=== PATIENT | male | born 1945 | race Hispanic/Latino ===

== ENCOUNTER 2017-05-09 18:34 | Emergency (ER) | payer MEDICARE ==
[~2017-05-09 18:34] MED LIST: AMIODARONE HCL 150 MG/3 ML VIAL IVPB ONE
[2017-05-09 18:49] VITALS: O2SAT 58
--- NOTE | 2017-05-10 09:05 | ED.PDOC ---
History of Present Illness - General Chief Complaint: Cardiac Respiratory Arrest Time Seen by Provider: 05/09/17 19:10 Source: EMS Exam Limitations: clinical condition - History of Present Illness Initial Comments: Patient presents from home after being found unresponsive. EMS reports that patient was not breathing when found and ECG showed idioventricular rhythm. CPR was started according to ACLS protocol. Patient arrives to E.D. in [facility] with occasional V. Tach. bursts. Timing/Duration: unsure Severity: severe Allergies/Adverse Reactions: Allergies NO KNOWN ALLERGY Allergy (Verified 05/09/17 18:49) Review of Systems - Review of Systems Unable to Obtain Due To: condition, intubated, clinical condition Past Medical History (General) - Patient Medical History Hx of COPD: Yes Hx Diabetes: Yes - Activities of Daily Living [facility] (if applicable[facility]:: [facility] Family Medical History - Family History Mother Family History: Unknown Physical Exam - Physical Exam General Appearance: Other - unresponsive Eye Exam: bilateral other - fixed and dilated Respiratory: other - no spontaneous breathing effort Cardiovascular/Chest: other - no heart sounds Neurologic: other - no corneal reflex, pupils fixed and dilated, sternal rub elicits no response, no withdrawal from pain, Doll's eye present DTR: 0: Brachioradialis, left, Brachioradialis, right, Patellar, left, Patellar , right Skin Exam: mottled, pallor Progress - Progress Progress: 05/10/17 09:06 CPR continued according to ACLS protocol. See nursing notes. Patient pronounced at 6:30 pm. Departure - Departure Clinical Impression: Cardiac arrest Disposition: Departure Forms: ED Discharge - Pt. Copy, Patient Portal Self Enrollment
== END 2017-05-09 19:10 | disposition expired ==
LOC: ER 18:34
DX: I46.9 Cardiac arrest, cause unspecified (principal); J44.9 Chronic obstructive pulmonary disease, unspecified; E11.9 Type 2 diabetes mellitus without complications
CPT/HCPCS: 92950; 94770; J0282